=== PATIENT | male | born 1985 | race Caucasian/White ===

== ENCOUNTER 2017-05-14 20:36 | Emergency (ER) | payer OTHER ==
[~2017-05-14] VITALS: Ht 188 cm; Wt 120.0 kg
[~2017-05-14 20:36] MED LIST: IBUPROFEN200 M1 PO; NOHOMEMEDS
[2017-05-15 02:04] VITALS: BP 135/95
== END 2017-05-15 02:06 | disposition short-term general hospital (02) ==
LOC: EME → TRA 20:36 → EDBD 20:36 → TRA 05-15 02:06
DX: S92.241A Displaced fracture of medial cuneiform of right foot, initial encounter for closed fracture (principal); S93.324A Dislocation of tarsometatarsal joint of right foot, initial encounter; V49.40XA Driver injured in collision with unspecified motor vehicles in traffic accident, initial encounter; F17.200 Nicotine dependence, unspecified, uncomplicated
CPT/HCPCS: 73630; 99281; 99285; J2250; J2270; J2405; J3010; J7050